=== PATIENT | female | born 1960 | race Caucasian/White ===

== ENCOUNTER → 2018-08-04 | Outpatient (CLI) | payer BC ==
--- NOTE | 2018-08-05 12:59 | MM ---
Reason for exam: screening (asymptomatic). Last mammogram was performed 1 year ago. History: Patient is postmenopausal and is nulliparous. Family history of premenopausal breast cancer in sister at age 39. Took hormonal contraceptives for 27 years beginning at age 18. Physical Findings: A clinical breast exam by your physician is recommended on an annual basis and results should be correlated with mammographic findings. MG 3D Screening Mammo W/Cad Bilateral CC and MLO view(s) were taken. Prior study comparison: July 24, 2017, bilateral MG screening mammo w CAD. July 04, 2016, bilateral MG screening mammo w CAD. The breast tissue is heterogeneously dense. This may lower the sensitivity of mammography. There is no discrete abnormality. No significant changes when compared with prior studies. ASSESSMENT: Negative, BI-RAD 1 RECOMMENDATION: Routine screening mammogram of both breasts in 1 year.
== END | disposition home or self-care (01) ==
LOC: RADMAMWWP 15:38
PROVIDERS: ATTEND Obstetrics & Gynecology
DX: Z12.31 Encounter for screening mammogram for malignant neoplasm of breast (principal)
CPT/HCPCS: 77063; 77067

== ENCOUNTER → 2019-09-20 | Outpatient (CLI) | payer BC ==
--- NOTE | 2019-09-21 11:19 | MM ---
Reason for exam: screening (asymptomatic). Last mammogram was performed 1 year and 2 months ago. History: Patient is postmenopausal and is nulliparous. Family history of premenopausal breast cancer in sister at age 39. Took hormonal contraceptives for 27 years beginning at age 18. Physical Findings: A clinical breast exam by your physician is recommended on an annual basis and results should be correlated with mammographic findings. MG 3D Screening Mammo W/Cad Bilateral CC, MLO, and XCCL view(s) were taken. Prior study comparison: August 04, 2018, bilateral MG 3d screening mammo w/cad. July 24, 2017, bilateral MG screening mammo w CAD. The breast tissue is heterogeneously dense. This may lower the sensitivity of mammography. There is chronic nodularity bilaterally. There is no dominant lesion. No significant changes when compared with prior studies. ASSESSMENT: Benign, BI-RAD 2 RECOMMENDATION: Routine screening mammogram of both breasts in 1 year.
== END | disposition home or self-care (01) ==
LOC: RADMAMWWP 13:27
PROVIDERS: ATTEND Obstetrics & Gynecology
DX: Z12.31 Encounter for screening mammogram for malignant neoplasm of breast (principal); Z80.3 Family history of malignant neoplasm of breast
CPT/HCPCS: 77063; 77067

== ENCOUNTER → 2020-09-26 | Outpatient (CLI) | payer BC ==
--- NOTE | 2020-09-28 08:40 | MM ---
Reason for exam: screening (asymptomatic). Last mammogram was performed 1 year ago. History: Patient is postmenopausal, has history of other cancer at age 57, and is nulliparous. Family history of premenopausal breast cancer in sister at age 39. Took hormonal contraceptives for 27 years beginning at age 18. Physical Findings: A clinical breast exam by your physician is recommended on an annual basis and results should be correlated with mammographic findings. MG 3D Screening Mammo W/Cad Bilateral CC and MLO view(s) were taken. XCCL view(s) were taken of the left breast. Prior study comparison: September 20, 2019, bilateral MG 3d screening mammo w/cad. August 04, 2018, bilateral MG 3d screening mammo w/cad. The breast tissue is extremely dense which could obscure a lesion on mammography. Focal asymmetry right and left CC view, a change could be related to compression. ASSESSMENT: Incomplete: need additional imaging evaluation, BI-RAD 0 RECOMMENDATION: Special view mammogram of both breasts. If lesion persists on supplemental views, image directed ultrasound is recommended. [facility] will attempt to contact patient to return for supplemental views and ultrasound if indicated.
== END | disposition home or self-care (01) ==
LOC: RADMAMWWP 16:38
PROVIDERS: ATTEND Obstetrics & Gynecology
DX: Z12.31 Encounter for screening mammogram for malignant neoplasm of breast (principal)
CPT/HCPCS: 77063; 77067

== ENCOUNTER → 2020-10-10 | Outpatient (CLI) | payer BC ==
--- NOTE | 2020-10-11 09:56 | MM ---
Reason for exam: additional evaluation requested from abnormal screening. Last mammogram was performed less than 1 month ago. History: Patient is postmenopausal, has history of other cancer at age 57, and is nulliparous. Family history of premenopausal breast cancer in sister at age 39. Took hormonal contraceptives for 27 years beginning at age 18. Physical Findings: Nurse did not find any significant physical abnormalities on exam. MG 3D Work Up W/Cad RICH Bilateral spot compression CC and LM view(s) were taken. Prior study comparison: September 26, 2020, bilateral MG 3d screening mammo w/cad. September 20, 2019, bilateral MG 3d screening mammo w/cad. The breast tissue is heterogeneously dense. This may lower the sensitivity of mammography. Medial asymmetric densities become less defined on 3D spots. Ultrasound recommended. These results were verbally communicated with the patient and result sheet given to the patient on 10/10/20. ASSESSMENT: Incomplete: need additional imaging evaluation, BI-RAD 0 RECOMMENDATION: Ultrasound of both breasts. medially
--- NOTE | 2020-10-11 10:00 | USB ---
Reason for exam: additional evaluation requested from abnormal screening. History: Patient is postmenopausal, has history of other cancer at age 57, and is nulliparous. Family history of premenopausal breast cancer in sister at age 39. Took hormonal contraceptives for 27 years beginning at age 18. US Breast Workup Limited RICH Right limited breast ultrasound including focal area of concern, retroareolar and axilla demonstrates no cystic or solid lesion seen. Left limited breast ultrasound including focal area of concern, retroareolar and axilla demonstrates no cystic or solid lesion seen. Scanned right 12-6 o'clock and left 6-12 o'clock. These results were verbally communicated with the patient and result sheet given to the patient on 10/10/20. ASSESSMENT: Probably benign, BI-RAD 3 RECOMMENDATION: Follow-up diagnostic mammogram of both breasts in 1 year.
== END | disposition home or self-care (01) ==
LOC: RADMAMWWP 14:58
PROVIDERS: ATTEND Obstetrics & Gynecology
DX: R92.8 Other abnormal and inconclusive findings on diagnostic imaging of breast (principal)
CPT/HCPCS: 77062; 77066

== ENCOUNTER → 2021-10-11 | Outpatient (CLI) | payer BC ==
--- NOTE | 2021-10-14 08:22 | MM ---
Reason for exam: additional evaluation requested from prior study. Last mammogram was performed 1 year ago. History: Patient is postmenopausal, has history of other cancer at age 57, and is nulliparous. Family history of premenopausal breast cancer in sister at age 39. Took hormonal contraceptives for 27 years beginning at age 18. Physical Findings: Nurse did not find any significant physical abnormalities on exam. MG 3D Diag Mammo W/Cad RICH Bilateral CC and MLO view(s) were taken. Prior study comparison: October 10, 2020, bilateral MG 3d work up w/cad RICH. September 26, 2020, bilateral MG 3d screening mammo w/cad. The breast tissue is heterogeneously dense. This may lower the sensitivity of mammography. There is no discrete abnormality. No significant new findings when compared with previous films. These results were verbally communicated with the patient and result sheet given to the patient on 10/11/21. ASSESSMENT: Benign, BI-RAD 2 RECOMMENDATION: Routine screening mammogram of both breasts in 1 year.
== END | disposition home or self-care (01) ==
LOC: RADMAMWWP 14:45
PROVIDERS: ATTEND Obstetrics & Gynecology
DX: R92.2 Inconclusive mammogram (principal); Z78.0 Asymptomatic menopausal state; Z80.3 Family history of malignant neoplasm of breast
CPT/HCPCS: 77062; 77066

== ENCOUNTER → 2022-07-14 | Outpatient (CLI) | payer BC ==
--- NOTE | 2022-07-14 10:14 | MR ---
EXAMINATION TYPE: MR lumbar spine wo con DATE OF EXAM: 07/14/2022 COMPARISON: None HISTORY: 62-year-old female T14.8XXA, INJURY OF UNSPECIFIED BODY REGION, right foot drop TECHNIQUE: Multiplanar, multisequence images of the lumbar spine were acquired without IV contrast. FINDINGS: Vertebral body heights are preserved. No suspicious bone marrow placement. Some edematous type I endplate changes present anteriorly at L2-L3 and L3-L4 and also at L5-S1. Moderate degenerative disc disease mid to lower lumbar spine with a desiccated, narrowed, and bulging discs. Ligamentum flavum thickening mid and lower lumbar spine, greatest at L2-L3 and L3-L4. Hypertrophic facet arthropathy is present throughout. There is a associated joint effusion on the rig ht at L3-L4. Degenerative grade 1 anterolisthesis L3-L4 and trace grade 1 retrolisthesis L4-L5. Conus medullaris is normal. No prevertebral paravertebral soft tissue abnormality is seen. At T12-L1, no spinal canal or foraminal stenosis. At L1-L2, no spinal canal or foraminal stenosis. At L2-L3, diffuse disc bulge with ligamentum flavum thickening and facet arthropathy. There is mild i ndentation of the ventral thecal sac without significant spinal canal stenosis. Changes result in a m ild to moderate left neuroforaminal stenosis. At L3-L4, advanced hypertrophic facet arthropathy with ligamentum flavum thickening, degenerative gra de 1 anterolisthesis, diffuse disc bulge. Changes result in a focal mild to moderate spinal canal karen nosis with mild left and minimal inferior right neuroforaminal narrowing. At L4-L5, hypertrophic facet arthropathy. Significant loss of disc height. Disc osteophyte complex wi th ligamentum flavum thickening. No significant spinal canal stenosis. Changes contribute to a modera te right greater than left neuroforaminal stenosis. At L5-S1, diffuse disc bulge with facet arthropathy. No significant spinal canal stenosis. Changes co ntribute to a severe right greater than left neuroforaminal stenosis. IMPRESSION: 1. Moderate degenerative disc disease mid to lower lumbar spine with some scattered edematous Modic t ype I endplate change. 2. Additional hypertrophic facet arthropathy and levels of thickened ligamentum flavum. Facet joint e ffusion on the right at L3-L4. Degenerative grade 1 anterolisthesis L3-L4 and trace grade 1 retrolist hesis at L4-L5. 3. Focal mild to moderate spinal canal stenosis at L3-L4. 4. Additionally, changes contribute to severe right greater than left neuroforaminal stenoses at L5-S 1. Moderate right greater than left neuroforaminal stenosis at L4-L5.
== END | disposition home or self-care (01) ==
LOC: RADMRIMAIN 08:13
PROVIDERS: ATTEND Internal Medicine
DX: M51.36 Other intervertebral disc degeneration, lumbar region (principal); M47.816 Spondylosis without myelopathy or radiculopathy, lumbar region; M43.16 Spondylolisthesis, lumbar region; M48.061 Spinal stenosis, lumbar region without neurogenic claudication; M99.73 Connective tissue and disc stenosis of intervertebral foramina of lumbar region; T14.8XXA Other injury of unspecified body region, initial encounter
CPT/HCPCS: 72148

== ENCOUNTER 2023-09-11 09:19 | Day surgery (SDC) | payer BC ==
[~2023-09-11 09:19] MED LIST: LACTATED RINGERS 1,000 ML IV SCH; LIDOCAINE 1% (10MG/ML) FOR IV START INTRADERMA PRN
[2023-09-11 10:01] VITALS: TEMP 98.2
[2023-09-11] MEDS ORDERED: PROPOFOL 10 MG/ML 20 ML VIAL IV ONE (10:41)
--- NOTE | 2023-09-11 10:56 | P.PCN ---
Date of Procedure: 09/11/23 Procedure(s) Performed: BRIEF HISTORY: Patient is a 63-year-old pleasant white female scheduled for an elective colonoscopy as a part of screening for colon cancer. PROCEDURE PERFORMED: Colonoscopy. PREOPERATIVE DIAGNOSIS: Screening for colon cancer. IV sedation per Anesthesia. PROCEDURE: After informed consent was obtained, the patient, was brought into the endoscopy unit. IV sedation was administered by Anesthesia under continuous monitoring. Digital rectal examination was normal. Initially the Olympus CF-160 flexible video colonoscope was then inserted in the rectum, gradually advanced into the cecum without any difficulty. Careful examination was performed as the scope was gradually being withdrawn. Ileocecal valve and the appendiceal orifice were visualized and appeared normal. Prep was excellent. Mucosa of the cecum, ascending colon, transverse colon, descending colon, sigmoid colon, and rectum appeared normal. Sigmoid diverticulosis. Retroflexion was performed in the rectum and no lesions were seen. The patient tolerated the procedure well. IMPRESSION: Normal-appearing colon from rectum to cecum with no evidence of colorectal neoplasia Scattered sigmoid diverticulosis . RECOMMENDATIONS: Findings of this examination were discussed with the patient as well as her family.. She was advised to have a repeat screening colonoscopy in 10 years.
[2023-09-11 11:20] VITALS: RESP 18
[2023-09-11 11:47] VITALS: BP 155/88; PULSE 67
== END 2023-09-11 11:47 | disposition home or self-care (01) ==
LOC: ORWHC2ENDO 09:19
PROVIDERS: ATTEND Internal Medicine Gastroenterology
DX: Z12.11 Encounter for screening for malignant neoplasm of colon (principal); K57.30 Diverticulosis of large intestine without perforation or abscess without bleeding; E78.5 Hyperlipidemia, unspecified; F41.9 Anxiety disorder, unspecified; Z88.2 Allergy status to sulfonamides; Z91.040 Latex allergy status; Z79.899 Other long term (current) drug therapy; Z88.0 Allergy status to penicillin
CPT/HCPCS: 45378; J2704

== ENCOUNTER → 2023-10-15 | Outpatient (CLI) | payer BC ==
--- NOTE | 2023-10-16 07:44 | MM ---
Reason for Exam: Screening (asymptomatic). Last screening mammogram was performed 12 month(s) ago. Patient History: Menarche at age 12. Patient has no children. Postmenopausal. Hormonal Contraceptives for 27 years from age 18 until age 49. Sister had breast cancer, age 39. Risk Values: Sidra 5 year model risk: 3.1%. NCI Lifetime model risk: 12.8%. Prior Study Comparison: 10/10/2020 Bilateral Diagnostic Mammogram, [facility]. 10/11/2021 Bilateral Diagnostic Mammogram, [facility]. 10/14/2022 Bilateral MG 3D screening mammo w/cad, [facility]. Tissue Density: The breast tissue is extremely dense which could obscure a lesion on mammography. Findings: Analyzed By CAD. The pattern is symmetrical. No significant interval change is evident. No suspicious groups of microcalcifications, spiculated or lobular masses, architectural distortion or other secondary signs of malignancy are mammographically apparent. Overall Assessment: Benign, BI-RAD 2 Management: Screening Mammogram of both breasts in 1 year. A negative mammogram report should not preclude additional follow up of suspicious palpable abnormalities. Patient should continue monthly self breast exam. A clinical breast exam by your physician is recommended on an annual basis and results should be correlated with mammographic findings. Electronically signed and approved by: Moustapha Valenzuela D.O. Radiologis
== END | disposition home or self-care (01) ==
LOC: RADMAMWWP 15:01
PROVIDERS: ATTEND Obstetrics & Gynecology
DX: Z12.31 Encounter for screening mammogram for malignant neoplasm of breast (principal); Z78.0 Asymptomatic menopausal state; Z80.3 Family history of malignant neoplasm of breast
CPT/HCPCS: 77063; 77067

== ENCOUNTER → 2024-07-12 | Outpatient (CLI) | payer BC ==
[2024-07-12 14:37] VITALS: BP 163/75; PULSE 80; RESP 17; TEMP 97.9
--- NOTE | 2024-07-12 15:29 | P.HPOB ---
History of Present Illness H&P Date: 07/12/24 Chief Complaint: Patient is here for her routine gynecologic exam. This is a 64-year-old -0-1-0 with an LMP of 2004. Patient is here to establish with this office. It has been about 1 year since her last pelvic exam. She previously saw Dr. Ling for her gynecologic care. She has seen Dr. Ling for many years and has had regular cervical screening and denies any issues with Pap smears. She is uncertain when her last Pap smear was done. Review of Systems The patient has gained 10 pounds over the last year. This was after losing about 15 pounds the year before due to stress in her life. She denies respiratory, cardiac, or G.I. problems. Past Medical History Past Medical History: Hyperlipidemia, Skin Disorder Additional Past Medical History / Comment(s): acute left neck/shoulder/back pain since Jul. from work related injury, eczema bilat. hands. Osteopenia. PAST RADIOLOGY THERAPIST HISTORY: She has no history of STDs. History of Any Multi-Drug Resistant Organisms: None Reported Additional Past Surgical History / Comment(s): colonoscopy 2023(next after 10yr). VTP. Additional Past Anesthesia/Blood Transfusion Reaction / Comment(s): has never had general anesthetic Past Psychological History: Anxiety Smoking Status: Never smoker Past Alcohol Use History: None Reported Past Drug Use History: None Reported Additional History: She has been a for more than 20 years. She is currently not seeing anybody at this time and is not sexually active. She works as a dental hygienist. - Past Family History Father Family Medical History: Coronary Artery Disease (CAD), Deep Vein Thrombosis (DVT), Hypertension, Myocardial Infarction (ID) Additional Family Medical History / Comment(s): Sister(s) Family Medical History: Cancer Additional Family Medical History / Comment(s): leimyosarcoma - 1 sister. breast cancer - 1 sister Mother Additional Family Medical History / Comment(s): Osteoporosis and tremors. Medications and Allergies Home Medications Medication Instructions Recorded Confirmed Type Acetaminophen [Tylenol Extra 500 mg PO Q6H PRN 09/09/23 07/12/24 History Strength] Citalopram Hydrobromide 20 mg PO QAM 09/09/23 07/12/24 History [Citalopram HBr] Ibuprofen 800 mg PO Q8H PRN 09/09/23 07/12/24 History Multivitamin [Multivitamins Adult 1 each PO DAILY 09/09/23 07/12/24 History Gummies] Simvastatin [Zocor] 10 mg PO HS 09/09/23 07/12/24 History Allergies Allergy/AdvReac Type Severity Reaction Status Date / Time amoxicillin Allergy Rash/Hives Verified 07/12/24 14:34 Latex, Natural Rubber Allergy Swelling Verified 07/12/24 14:34 Sulfa (Sulfonamide Allergy Rash/Hives Verified 07/12/24 14:34 Antibiotics) Exam Vital Signs Temp Pulse Resp BP Pulse Ox 07/12/24 14:35 97.9 F 80 17 163/75 97 Intake and Output 07/12/24 07/12/24 07/12/24 06:59 14:59 22:59 Other: Weight 56.699 kg Height 5 feet 4 inches, weight 125 pounds, BMI 21.5. This is a well-developed well-nourished white female who is alert and oriented times 3 in no acute distress. HEENT: Within normal limits. NECK: Supple without mass or thyromegaly. CHEST AND LUNGS: Clear to auscultation. HEART: Regular rate and rhythm. BREASTS: Are without mass or discharge. AXILLARY EXAM: Negative for adenopathy. BACK: Negative for CVA tenderness. ABDOMEN: Soft, nontender, without palpable masses. PELVIC EXAM: Normal external genitalia with mild to moderate atrophy. Cervix and vagina appear normal with mild atrophy. There is no unusual discharge. There is no evidence of prolapse. The uterus is midposition, nongravid size and nontender. There are no palpable adnexal masses or tenderness. RECTAL EXAM: Rectovaginal exam is negative for mass or tenderness and is negative for occult blood. EXTREMITIES: Nontender. IMPRESSION: 1. 64-year-old menopausal female with normal gynecologic exam. 2. History of osteopenia. 3. Elevated blood pressure. PLAN: 1. Pap smear was performed. She states she has records from Dr. Ling's office and will bring them in for me to review. If that she has had adequate screening, without cervical neoplasia, we may be able to discontinue Pap smears after the age of 65. 2. Self breast awareness was discussed with the patient. We have also discussed symptoms associated with inflammatory breast cancer. 3. Screening mammogram was done on 10/15/2023 and was benign. She will repeat this after 1 year. The order slip was given to the patient for this. 4. Osteoporosis prevention was discussed. I have stressed the importance of adequate calcium, vitamin D and regular exercise. Recommended amounts of calcium and vitamin D were also discussed. We will plan on repeating the bone density test at her next well woman examination. Her last bone density test was done on 10/14/2022. 5. We have discussed her elevated blood pressure. I have recommended that she check her own blood pressure on a regular basis. She does have access to a blood pressure cuff at work. She will follow-up with Dr. Gibbs for blood pressure elevations. 6. She was advised to return in one year for her annual well woman exam.
== END ==
LOC: WWCWWP 14:23
PROVIDERS: ATTEND Obstetrics & Gynecology
DX: Z01.419 Encounter for gynecological examination (general) (routine) without abnormal findings (principal); M85.80 Other specified disorders of bone density and structure, unspecified site; R03.0 Elevated blood-pressure reading, without diagnosis of hypertension; Z78.0 Asymptomatic menopausal state; Z91.040 Latex allergy status; Z88.2 Allergy status to sulfonamides; Z88.1 Allergy status to other antibiotic agents; Z80.3 Family history of malignant neoplasm of breast

== ENCOUNTER → 2024-11-09 | Outpatient (CLI) | payer BC ==
[2024-11-09 10:32] LABS: Basophils # (A) 0.05 X 10*3/uL (0.00-0.10); Basophils % (A) 0.9 %; Eosinophils # (A) 0.24 X 10*3/uL (0.04-0.35); Eosinophils % (A) 4.4 %; HCT 43.5 % (37.2-46.3); HGB 14.2 g/dL (12.0-15.0); Lymphocytes # (A) 0.96 X 10*3/uL (0.90-5.00); Lymphocytes % (A) 17.6 %; MCH 29.7 pg (27.0-32.0); MCHC 32.6 g/dL (32.0-37.0); Mean Platelet Volume 9.1 FL (9.5-12.2); Monocytes # (A) 0.47 X 10*3/uL (0.20-1.00); Monocytes % (A) 8.6 %; NRBC Per 100 WBC 0 X 10*3/uL (0.00-0.01); Neutrophils # (A) 3.74 X 10*3/uL (1.80-7.70); Neutrophils % (A) 68.3 %; Platelet Count 262 X 10*3/uL (140-440); RBC 4.78 X 10*6/uL (4.10-5.20); RDW 12.7 % (11.5-14.5); WBC 5.47 X 10*3/uL (4.50-10.00)
[2024-11-09 10:54] LABS: ALT 18 U/L (8-44); AST 31 U/L (13-35); Albumin 4.2 g/dL (3.8-4.9); Albumin/Globulin Ratio 1.56 Ratio (1.60-3.17); Alkaline Phosphatase 102 U/L (41-126); BUN/Creat Ratio 15.12 Ratio (12.00-20.00); Blood Urea Nitrogen 12.1 mg/dL (9.0-27.0); Calcium 9.2 mg/dL (8.7-10.3); Carbon Dioxide 30.1 mmol/L (21.6-31.8); Chloride 101 mmol/L (96-109); Globulin 2.7 g/dL (1.6-3.3); Glucose 106 mg/dL (70-110); Potassium 3.4 mmol/L (3.5-5.5); Sodium 141 mmol/L (135-145); Total Bilirubin 0.6 mg/dL (0.3-1.2); Total Protein 6.9 g/dL (6.2-8.2)
== END | disposition home or self-care (01) ==
LOC: LABWHC1 07:11
PROVIDERS: ATTEND Specialist
DX: Z08 Encounter for follow-up examination after completed treatment for malignant neoplasm (principal); D22.5 Melanocytic nevi of trunk; L81.4 Other melanin hyperpigmentation; L82.1 Other seborrheic keratosis; D22.71 Melanocytic nevi of right lower limb, including hip; L30.9 Dermatitis, unspecified; D22.72 Melanocytic nevi of left lower limb, including hip; Z71.89 Other specified counseling; Z85.820 Personal history of malignant melanoma of skin
CPT/HCPCS: 36415; 80053; 84443; 85025

== ENCOUNTER → 2025-02-01 | Outpatient (CLI) | payer BC ==
--- NOTE | 2025-02-01 16:24 | MM ---
Reason for Exam: Screening (asymptomatic). Last mammogram was performed 1 year(s) and 4 month(s) ago. Patient History: Menarche at age 12. Patient has no children. Postmenopausal. Hormonal Contraceptives for 27 years from age 18 until age 49. Sister had breast cancer, age 39. Risk Values: Sidra 5 year model risk: 3.2%. NCI Lifetime model risk: 12.4%. Prior Study Comparison: 10/11/2021 Bilateral Diagnostic Mammogram, [facility]. 10/14/2022 Bilateral MG 3D screening mammo w/cad, [facility]. 10/15/2023 Bilateral MG 3D screening mammo w/cad, [facility]. Tissue Density: The breasts are extremely dense, which lowers the sensitivity of mammography. Findings: Analyzed By CAD. There is no suspicious group of microcalcifications or new suspicious mass in either breast. Overall Assessment: Negative, BI-RAD 1 Management: Screening Mammogram of both breasts in 1 year. Given patient's extremely dense breast tissue, consideration can be given to supplementary screening with breast ultrasound. See note below in regards to the patient's increased 5 year Sidra score. Patient should continue monthly self-breast exams. A clinical breast exam by your physician is recommended on an annual basis. This exam should not preclude additional follow-up of suspicious palpable abnormalities. Note on Sidra scores and lifetime risk: 1. A Sidra score greater than 3% is considered moderate risk. If this is the case, consider specialist referral to assess eligibility for a risk reducing agent. 2. If overall lifetime risk for the development of breast cancer is 20% or higher, the patient may qualify for future screening with alternating mammogram and breast MRI. [facility], , 02/01/2025 4:20 PM. Electronically signed and approved by: Monica Koehler M.D. Radiologist
--- NOTE | 2025-02-01 16:36 | BD ---
EXAMINATION TYPE: Axial Bone Density DATE OF EXAM: 02/01/2025 CLINICAL HISTORY: 64 years old Female. ICD-10 CODE: Z78.0 MENOPAUSAL STATE , Additional History: Height: 5 ft 4 in Weight: 126 FRAX RISK QUESTIONS: Alcohol (3 or more units per day): no Family History (Parent hip fracture): no Glucocorticoids (More than 3mos): no (Ex: prednisone, prednisolone, methylprednisolone, dexamethasone, and hydrocortisone). History of Fracture in Adulthood: no Secondary Osteoporosis: 1. Type 1 Diabetes: no 2. Hyperthyroidism: no 3. Menopause before 45: no 4. Malnutrition: no 5. Chronic liver disease: no Rheumatoid Arthritis: no Current Tobacco Use: no RISK FACTORS HISTORY OF: Surgery to Spine/Hip(right/left)/Wrist (right/left): no MEDICATIONS: Thyroid Medications: none Osteoporosis Medications: none EXAM MEASUREMENTS: Bone mineral densitometry was performed using the [employer] System. Bone mineral density as measured about the Lumbar spine is: ----- L1-L4(G/cm2): 1.226 T Score Values are as follows: ----- L1: -1.4 ----- L2: -0.2 ----- L3: 1.4 ----- L4: 1.5 ----- L1-L4: 0.4 Z Score Values are as follows: ----- L1: 0.4 ----- L2: 1.6 ----- L3: 3.2 ----- L4: 3.3 ----- L1-L4: 2.2 Bone mineral density has: decreased -4.5 % since study of: 2022 Bone mineral density about the R hip (g/cm2): 0.779 Bone mineral density about the L hip (g/cm2): 0.782 T Score values are as follows: -----R Neck: -1.9 -----L Neck: -1.8 -----R Total: -1.3 -----L Total: -1.1 Z Score values are as follows: -----R Neck: -0.2 -----L Neck: -0.2 -----R Total: 0.1 -----L Total: 0.3 Bone mineral density has: decreased -9.1 % since study of: 2022 FRAX%s: The graph provided illustrates a 9.3 % chance for a major osteoporotic fx and a 1.4% chance f or the hips probability for fx in 10 years time. IMPRESSION: Osteopenia (T Score between -2.5 and -1). There is slightly increased risk of fracture and the patient may be considered for treatment. Re-Screen 2-5 years. NOTE: T-SCORE=SD OF THE YOUNG ADULT MEAN. [facility], , 02/01/2025 4:34 PM
== END | disposition home or self-care (01) ==
LOC: RADMAMWWP 15:22
PROVIDERS: ATTEND Internal Medicine
DX: Z12.31 Encounter for screening mammogram for malignant neoplasm of breast (principal); R92.343 Mammographic extreme density, bilateral breasts; M85.89 Other specified disorders of bone density and structure, multiple sites; Z78.0 Asymptomatic menopausal state; Z80.3 Family history of malignant neoplasm of breast; Z92.0 Personal history of contraception
CPT/HCPCS: 77063; 77067; 77080